=== PATIENT | female | born 1955 | race Caucasian/White ===

== ENCOUNTER 2020-11-04 14:04 | Outpatient (REF) | payer BC, SELFPAY ==
--- NOTE | ~2020-11-04 | MM_ITS ---
EXAMINATION: MM SCREENING DIGITAL BREAST TOMOSYNTHESIS, BILATERAL CLINICAL INFORMATION: Screening. Asymptomatic. The lifetime risk of breast cancer based on the Tyrer-Cuzick Model is 6%. COMPARISON: Mammography: 09/05/2019, 06/16/2018, 03/21/2017 TECHNIQUE: Digital breast tomosynthesis is performed in both the craniocaudal and mediolateral oblique views along with computer-aided detection (CAD). Synthesized 2D images are generated from the tomosynthesis. FINDINGS: The breasts are heterogeneously dense, which may obscure small masses (ACR BI-RADS breast composition Category c). There are no significant masses, abnormal calcifications, or other abnormalities. There is fine fibronodular parenchymal pattern with fibroglandular distribution is similar to prior exams. Breast tissue composition borders on average fibroglandular. There are no significant changes. MM/MM tomosynthesis screening BI IMPRESSION: No mammographic evidence of malignancy. ASSESSMENT: BI-RADS 1: Negative RECOMMENDATION: Routine annual mammography screening. This patient's information was entered into a reminder system with a target due date for their next mammogram.
== END 2020-11-04 14:05 | disposition home or self-care (01) ==
LOC: HO.MAMMO 14:04
PROVIDERS: Visit Provider Family Medicine
DX: Z12.31 Encounter for screening mammogram for malignant neoplasm of breast (principal)
CPT/HCPCS: 77063; 77067

== ENCOUNTER 2022-02-08 13:54 | Outpatient (REF) | payer BC, SELFPAY ==
--- NOTE | ~2022-02-08 | MM_ITS ---
EXAMINATION: MM SCREENING DIGITAL BREAST TOMOSYNTHESIS, BILATERAL CLINICAL INFORMATION: Screening. Asymptomatic. The lifetime risk of breast cancer based on the Tyrer-Cuzick Model is 6%. COMPARISON: Mammography: 11/04/2020, 09/05/2019, 06/16/2018 TECHNIQUE: Digital breast tomosynthesis is performed in both the craniocaudal and mediolateral oblique views along with computer-aided detection (CAD). Synthesized 2D images are generated from the tomosynthesis. FINDINGS: There are scattered areas of fibroglandular density (ACR BI-RADS breast composition Category b). Breast tissue composition borders on heterogeneously dense. Finding fibronodular parenchymal pattern is similar to prior studies and there is no developing density or interval architectural abnormality or significant mass. No abnormal calcifications. No significant changes. MM/MM tomosynthesis screening BI IMPRESSION: No mammographic evidence of malignancy. ASSESSMENT: BI-RADS 1: Negative RECOMMENDATION: Routine annual mammography screening. This patient's information was entered into a reminder system with a target due date for their next mammogram.
== END 2022-02-08 13:55 | disposition home or self-care (01) ==
LOC: HO.MAMMO 13:54
PROVIDERS: Visit Provider Family Medicine
DX: Z12.31 Encounter for screening mammogram for malignant neoplasm of breast (principal)
CPT/HCPCS: 77063; 77067

== ENCOUNTER 2023-05-02 13:55 | Outpatient (REF) | payer BC, SELFPAY | END 2023-05-02 13:56 | disposition home or self-care (01) | LOC: HO.MAMMO 13:55 | PROVIDERS: PCP Family Medicine; Visit Provider Family Medicine | DX: Z12.31 Encounter for screening mammogram for malignant neoplasm of breast (principal) | CPT/HCPCS: 77063; 77067 ==

== ENCOUNTER → 2023-05-02 14:15 | Outpatient (BNV) | payer BC, SELFPAY | PROVIDERS: PCP Family Medicine; Visit Provider Radiology Diagnostic Radiology | DX: Z12.31 Encounter for screening mammogram for malignant neoplasm of breast (principal) | CPT/HCPCS: 77063; 77067 ==

== ENCOUNTER 2024-05-15 11:48 | Outpatient (REF) | payer MEDICARE, SELFPAY ==
--- NOTE | ~2024-05-15 | MM_ITS ---
EXAMINATION: MM SCREENING DIGITAL BREAST TOMOSYNTHESIS, BILATERAL CLINICAL INFORMATION: Screening. Asymptomatic. COMPARISON: Mammography: Comparison is made with available priors TECHNIQUE: Digital breast mammography with tomosynthesis is performed in both the craniocaudal and mediolateral oblique views along with computer-aided detection (CAD). FINDINGS: There are scattered areas of fibroglandular density (ACR BI-RADS breast composition Category b). There are no significant masses, abnormal calcifications, or other abnormalities. MM/MM tomosynthesis screening BI IMPRESSION: No mammographic evidence of malignancy. ASSESSMENT: BI-RADS BI-RADS 1 - Negative RECOMMENDATION: Routine annual mammography screening. 1 year F/U This examination should not preclude the clinical evaluation of a suspicious palpable abnormality. This patient's information was entered into a reminder system with a target due date for their next mammogram. Electronically signed by: Kera Jimenez DO 05/25/2024 09:04 AM EDT
== END 2024-05-15 11:49 | disposition home or self-care (01) ==
LOC: HO.MAMMO 11:48
PROVIDERS: PCP Family Medicine; Visit Provider Family Medicine
DX: Z12.31 Encounter for screening mammogram for malignant neoplasm of breast (principal)
CPT/HCPCS: 77063; 77067

== ENCOUNTER → 2024-05-15 12:00 | Outpatient (BNV) | payer MEDICARE, SELFPAY | PROVIDERS: PCP Family Medicine; Visit Provider Internal Medicine | DX: Z12.31 Encounter for screening mammogram for malignant neoplasm of breast (principal) | CPT/HCPCS: 77063; 77067 ==

== ENCOUNTER 2025-03-28 13:11 | Outpatient (REF) | payer MEDICARE, SELFPAY | END 2025-03-28 13:12 | disposition home or self-care (01) | LOC: HO.LNP 13:11 | PROVIDERS: PCP Family Medicine; Visit Provider Obstetrics & Gynecology | DX: Z01.419 Encounter for gynecological examination (general) (routine) without abnormal findings (principal); N94.9 Unspecified condition associated with female genital organs and menstrual cycle | CPT/HCPCS: 87626; 88175; G0101; Q0091 ==

== ENCOUNTER 2025-03-28 13:11 | Outpatient (AMB) | payer MEDICARE, SELFPAY ==
--- NOTE | 2025-03-28 13:40 | MHC.OFFVIS ---
Vital Signs 03/28/25 13:49 Height 5 ft 1 in Weight 134 lb BMI 25.3 BP 120/72 Intake Visit Reasons: New patient Annual Intake Note: Patient concerns of x4 months vaginal lesion, has hardened. 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 E Commerce Retailer: E Commerce Retailer Present ([place]) Accompanied by: Self / Same As Patient Allergies No Known Allergies Allergy (Verified 03/28/25 13:47) Is last menstrual period known: No Post menopausal: Yes Patient : No HPI Comments Details: Presenting for annual exam. Complaining of a right vulvar lesion that appears 4 months ago , nontender not itchy Last Pap/HPV was negative in 04/02 Last Mammogram was BI-RADS 1 in 06/07 Last Colonoscopy was in 10/09, the recommendation was to repeat in 10 years according to the patient, no records available No previous screening DEXA scan PFSH Medical History Sinusitis Asthma Surgical History History of carpal tunnel surgery Hx of tonsillectomy Social History Household Members Other:: Alone Housing: Condominium Alcohol intake: current Comment: occasional Patient Tobacco Use Status: Former Tobacco user Current occupational status: retired Female Reproductive History Menstrual Age of Menarche: 15 control method: none Age of menopause: 52 Total pregnancies: 0 History of abnormal pap smear: Yes (1989 +HPV ) Date of Mammogram: 05/15/24 (bi rad 1) Review of Systems Const All systems reviewed & are unremarkable except as noted in HPI and below Card Reports as per HPI Resp Reports as per HPI GI Reports as per HPI and Reports no additional complaints Reports as per HPI Physical Exam Vital Signs: Last Vital Signs BP 120/72 03/28/25 13:49 BMI result Body Mass Index 25.3 Const General: cooperative, healthy appearing and comfortable Chest Chest palpation & inspection: normal inspection of the chest and normal palpation of entire chest wall Breast/axilla inspection: normal inspection of the breasts and normal inspection of the axillae Breast/axilla palpation: normal palpation of the breasts, normal palpation of the axillae and no axillary lymphadenopathy Resp Effort & Inspection: normal respiratory effort Auscultation: clear to auscultation bilaterally Percussion: percussion normal Cardio Palpation: normal PMI Rate: regular rate Rhythm: regular rhythm Heart sounds: no murmurs and no rubs Peripheral pulses: Peripheral pulses 2+ throughout GI Inspection: Yes normal to inspection Palpation (GI): Soft to palpation, nontender, no guarding, not rigid and No hepatosplenomegaly present General: Yes bladder normal to palpation External Female Exam: No lesion Speculum Exam - Vagina: normal appearance of the vagina, normal palpation, normal vaginal discharge and not erythematous Speculum Exam - Cervix: normal appearance of the cervix and normal palpation Bimanual exam- vagina & uterus: normal bimanual exam, normal palpation, uterine size normal, bladder normal to palpation, consistency normal and normal palpation Bimanual Exam- Adnexa, other: adnexae abnormal (Left adnexal fullness), no masses and no tenderness Assessment & Plan Assessment & Plan (1) Well woman exam: Code(s): Z01.419 - Encounter for gynecological examination (general) (routine) without abnormal findings Category: Medical Plan: Co testing done since last co testing was in 04/02 more than 5 years, the patient had adequate negative cervical screening in 2015, 2014, 2009 Counseled the patient about the recommended dietary allowance of 1200 mg of Calcium & 800 IU of vitamin D. Instructions given the patient to schedule next screening Mammogram in 06/08. Will order DEXA scan . The patient was instructed to perform monthly self-breast exams and to schedule a 2 week DEXA scan follow-up appointment and an annual exam in a year; All questions answered and the patient verbalized understanding. (2) Adnexal fullness: Comment: Left-sided Code(s): N94.9 - Unspecified condition associated with female genital organs and menstrual cycle Category: Medical Plan: Discussed with the patient the finding on pelvic exam, left adnexal fullness. Pelvic ultrasound ordered. Instructions given the patient to schedule an ultrasound follow-up appointment within 2 weeks. All questions answered, the patient verbalized understanding. Orders: Orders XR DEXA axial skeleton Today Z78.0 - Asymptomatic menopausal state US pelvic and transvaginal Today N94.9 - Unspecified condition associated with female genital organs and menstrual cycle Pap Smear Today Z01.419 - Encounter for gynecological examination (general) (routine) without abnormal findings HPV High risk Today Z01.419 - Encounter for gynecological examination (general) (routine) without abnormal findings Coding Level of Care Code New Pt Prev Care >65yr (99157) Diagnoses Well woman exam Z01.419 Adnexal fullness N94.9
[2025-03-28 13:49] VITALS: BP 120/72; BMI 25.3
--- OUTSIDE RECORDS SUMMARY | 2025-03-28 14:04 | XMS_ITS | Clinical Summary ---
Author Organization [facility] Address [address] [place] [phone] Phone Care Team Providers Care Park Activities Coordinator Name Role Phone Royal Luciano MD Primary Care Provider + Allergies Active Allergy Reactions Criticality Noted Date Comments Pollen Extracts 07/24/2024 Medications fluticasone-salm eterol (ADVAIR DISKUS) 250-50 mcg/dose DISKUS Inhale 1 puff into the lungs 2 (two) times a day. 7 Active albuterol (PROAIR HFA) 90 mcg/actuation inhaler Inhale 2 puffs into the lungs every 4 (four) hours as needed. 7 Active ALBUTEROL SULFATE (PROAIR HFA INHL) 2 puffs as needed Inhalation as needed Active fluticasone-salm eterol (ADVAIR DISKUS) 250-50 mcg/dose DISKUS Inhalation daily Active Medication-Free Text Acyclovir Active ID-estradiol or placebo ([id number]) 0.1 mg/24 hr transdermal patchIndications :Research exam Apply one patch topically twice a week (every 3 days) 28 patch 5 Active ID-progesterone or placebo ([id number]) vaginal insertIndication s:Research exam Place 1 each (100 mg total) vaginally daily. 104 each 5 Active Encounters Date Type Department Care Team Description 01/30/2025 Orders Only [facility] [place] [address] [place] [address], [address] [place] [address] Sharon Solorio CNP Research exam (Primary Dx) from Last 3 Months Family History Medical History Relation Comments Cancer Maternal Grandmother Colon cancer Maternal Grandmother Thyroid disease Mother Cancer Paternal Aunt Uterine cancer Paternal Aunt Cancer Paternal Grandmother Relation Status Comments Maternal Grandmother Mother Paternal Aunt Paternal Grandmother Social History Tobacco Use Types Packs/Day Years Used Date Smoking Tobacco: Never Assessed Education Answer Date Recorded Are you interested in more education? Not on todd e 05/01/2024 Are you concerned about learning? Not on file 05/01/2024 No 05/01/2024 No 05/01/2024 Digital Access Answer Date Recorded No 05/01/2024 No 05/01/2024 Reliable internet access at home? Not on file 05/01/2024 Device with a working camera? Not on file Comments Unknown Sex and Gender Information Value Date Recorded Sex Assigned at Female 06/25/2024 10:17 AM EST Legal Sex Female 9:51 PM EDT Gender Identity Female 06/25/2024 10:17 AM EST Sexual Orientation Lesbian or Bennett 06/25/2024 10 :17 AM EST Last Filed Vital Signs Vital Sign Reading Time Taken Comments Blood Pressure 130/70 09/29/2017 10:08 AM EST Pulse 94 04/07/2017 11:20 AM EDT Temperature 36.8 C (98.2 F) 04/07/2017 11:20 AM EDT Respiratory Rate - - Oxygen Saturation - - Inhaled Oxygen Concentration - - Weight 58.6 kg (129 lb 3 oz) 07/24/2024 11:00 AM EST metabolic Height 152.2 cm (4' 11.92 ) 07/24/2024 11:00 AM EST Body Mass Index 25.3 07/24/2024 11:00 AM EST Plan of Treatment Health Maintenance Due Date Last Done Comments Adult Td,Tdap Booster 1957 LIPID PANEL 1957 DEPRESSION SCREENING 1969 SMOKING Hx and SMOKELESS TOBACCO SCREENING 1970 MAMMOGRAM 1997 COLOGUARD 2002 COLONOSCOPY 2002 COLORECTAL CANCER SCREENING 2002 FIT TEST 2002 FOBT 2002 SIGMOIDOSCOPY 2002 VIRTUAL COLONOSCOPY 2002 PNEUMOCOCCAL VACCINES (50+ years) (1 of 1 - PCV) 12/30/2007 ZOSTER VACCINES (1 of 2) 12/30/2007 SCREENING FOR DIABETES 01/18/2021 01/18/2018 OSTEOPOROSIS SCREENING INITI AL (ONE-TIME) 2022 COVID-19 VACCINE (3 - 2023-2 5 season) 2024 12/06/2020, 11/14/2020 RSV VACCINE (1 - 1-dose 75+ series) 2032 HEPATITIS C SCREENING Completed 06/28/2024 HEPATITIS A VACCINES Aged Out No long er eligible based on patient's age to complete this topic HIB VACCINES Aged Out No longer eligi ble based on patient's age to complete this topic MENINGOCOCCAL VACCINES (ACWY) Aged Out No longer eligible based on patient's age to complete this topic MENINGOCOCCAL VACCINES (B) Aged Out N o longer eligible based on patient's age to complete this topic Medical Devices Not on file Procedures Procedure Name Priority Date/Time Associated Diagnosis Comments HEPATITIS C ANTIBODY, QUALITATIVE Routine 06/28/2024 2:32 PM EST Research exam from Last 3 Months or Most Recently Relevant to Health Maintenance Results * Hepatitis C antibody, qualitative (06/28/2024 2:32 PM EST) HCV ANTIBODY Negative Negative [facility] Comment:Antibodies to HCV no t detected. Does not exclude the possibility of exposure to HCV. Blood 06/28/2024 2:32 PM EST 06/28/2024 5:29 PM EST us Sharon Solorio CONCRETE FINISHER APPRENTICE LAB BLOOD ORDERABLES Final Result [facility] [address] [place] [address] from Last 3 Months or Most Recently Relevant to Health Maintenance Insurance [employer] MEDICARE PREFERRED SUPPLEMENT MEDICARE PART A & B [facility] MEDICARE PREFERRED SUPPLEMENT MEDICARE PART A & B [facility] MEDICARE PREFERRED SUPPLEMENT MEDICARE PART A & B [facility] MEDICARE PREFERRED SUPPLEMENT MEDICARE PART A & B [employer] MEDICARE PREFERRED SUPPLEMENT MEDICARE PART A & B [facility] MEDICARE PREFERRED SUPPLEMENT MEDICARE PART A & B Care Teams Park Activities Coordinator Relationship Specialty Start Date End Date Royal Luciano MD [address] [place] [phone] PCP - General Family Medicine 06/25/24 Additional Source Comments The information contained in this document represents components of the legal health record. It is not the complete legal health record.[facility]
--- OUTSIDE RECORDS SUMMARY | 2025-03-28 14:04 | XMS_ITS ---
Author Name [facility] Organization Unknown Encounters Encounter Type Encounter Reason Primary Diagnosis Location Date Emergency medical services General Pain - Injury Pain (General) [facility] 12/21/2021
== END 2025-03-28 14:09 | disposition home or self-care (01) ==
LOC: HO.HWS 13:12
PROVIDERS: PCP Family Medicine; Visit Provider Obstetrics & Gynecology
DX: Z01.419 Encounter for gynecological examination (general) (routine) without abnormal findings (principal); N94.9 Unspecified condition associated with female genital organs and menstrual cycle
CPT/HCPCS: G0101; Q0091

== ENCOUNTER 2025-05-16 13:39 | Outpatient (REF) | payer MEDICARE, SELFPAY ==
--- NOTE | ~2025-05-16 | US_ITS ---
EXAMINATION: US PELVIS CLINICAL INFORMATION: Adnexal fullness. Postmenopausal. COMPARISON: None available. TECHNIQUE: Ultrasound of the pelvis is performed using both transabdominal and transvaginal transducers along with Doppler. Transvaginal imaging is performed due to inadequate visualization transabdominally. FINDINGS: Uterus: The uterus is anteverted, anteflexed and measures 6.5 x 2.7 x 3.4 cm. The double wall endometrial thickness is 3.0 mm. The uterus is smooth in contour and has normal myometrial echogenicity. There is a small echogenic fibroid along the anterior uterus measuring 1.2 x 0.9 x 0.8 cm. No additional lesions seen. Adnexa: Both ovaries are visualized. There is normal color flow to the adnexa. There is no ovarian torsion. There is no pelvic ascites or fluid collection. Right ovary measures 1.6 x 1 0.0, 1.7 cm. Volume measures 1.4 mL Left ovary measures 1.7 x 1.2 x 1.1 cm. Volume measures 1.2 mL . There is no free fluid in cul-de-sac. US/US pelvic and transvaginal IMPRESSION: Small uterine fibroid. Otherwise uterus is unremarkable. Unremarkable ovaries. No free fluid in cul-de-sac. Electronically signed by: Misbah Burks MD 05/16/2025 02:50 PM EDT
--- OUTSIDE RECORDS SUMMARY | 2025-05-16 15:10 | XMS_ITS | Encounter Summary ---
Author Organization [facility] Address [address] [place] [phone] Phone Care Team Providers Care Pc Installation Engineer Name Role Phone Royal Luciano MD Primary Care Provider + Encounter Details Date Type Department Care Team (Late st Contact Info) Description 07/10/2024 Procedure Pass [facility] for [facility] - MRI [address] [facility]th [place] [address] Social History Tobacco Use Types Packs/Day Years [...] or Bennett 06/25/2024 10 :17 AM EST documented as of this encounter Plan of Treatment Not on file documented as of this encounter Visit Diagnoses Not on filedocumented in this encounter Care Teams Pc Installation Engineer Relationship Specialty Start Date End Date Royal Luciano MD [address] [place] [id number] PCP - General Family Medicine 06/25/24 documented as of this encounter Additional Source Comments The information contained in this document represents components of the legal health record. It is not the complete legal health record.[facility]
--- OUTSIDE RECORDS SUMMARY | 2025-05-16 15:10 | XMS_ITS | Encounter Summary ---
Author Organization [facility] Address [address] [address] Phone Care Team Providers Care Insurance Marketing Specialist Name Role Phone Luis Du MD Primary Care Provider Royal Germain MD Primary Care Provider + Encounter Details Date Type Department Care Team (Latest Contact Info) Description 01/18/2018 Transcribe Orders [facility] [address] [place] [address] Luis Du MD Colitis (Primary Dx); Rectal bleeding Social History Tobacco Use Types Packs/Day Years Used Date Smoking Tobacco: Never Assessed Comments Unknown Sex and Gender Information Value Date Recorded Sex Assigned at Female 06/25/2024 10:17 AM EST Legal Sex Female 9:51 PM EDT Gender Identity Female 06/25/2024 10:17 AM EST Sexual Orientation Lesbian or Bennett 06/25/2024 10 :17 AM EST documented as of this encounter Plan of Treatment Not on file documented as of this encounter Results * Sedimentation rate (ESR) (01/18/2018 10:44 AM EDT) ESR 7 0 - 30 mm/h [facility] Blood 01/18/2018 10:4 4 AM EDT 01/18/2018 10:46 AM EDT us Luis Du MD LAB BLOOD ORDERABLES Final Resu lt [address] [address] * (ABNORMAL) C-Reactive Protein (01/18/2018 10:44 AM EDT) Pathologist [facility] C REACTIVE PROTEIN 10.9(H) 0.0 - 4.0 mg/L [facility] Comment:New Reference Range and Measuring Units effective 12/28/17. Blood 01/18/2018 10:4 4 AM EDT 01/18/2018 10:46 AM EDT us Luis Du MD LAB BLOOD ORDERABLES Final Resu lt [address] [address] * (ABNORMAL) CBC and differential (01/18/2018 10:44 AM EDT) Pathologist [facility] WBC 6.55 3.40 - 11.20 K/uL [facility] RBC 4.45 3.80 - 4.80 M/uL [facility] HGB 14.1 12.0 - 15.0 g/dL [facility] HCT 40.9 36.0 - 46.0 % [facility] PLT 324 130 - 400 K/uL [facility] MCV 91.9 79.0 - 98.0 [facility] MCH 31.7 27.0 - 34.8 pg [facility] MCHC 34.5 31.5 - 36.0 g/dL [facility] RDW 12.8 10.8 - 14.6 % [facility] MPV 10.1 9.4 - 12.4 [facility] NRBC 0.00 /100 WBCs [facility] ABSOLUTE NRBC 0.00 K/uL [facility] DIFF METHOD Auto [facility] NEUTS 67.7 45.30 - 77.70 % [facility] LYMPHS 20.6 12.30 - 39.70 % [facility] MONOS 9.5 4.10 - 12.80 % [facility] EOS 1.4 0 - 7.2 % [facility] BASOS 0.3 0 - 2.80 % [facility] Granulocytes, immature (%) 0.5 0.0 - 0.9 % [facility] ABSOLUTE NEUTS 4.44 1.40 - 7.70 K/uL [facility] ABSOLUTE LYMPHS 1.35 0.60 - 3.20 K/uL [facility] ABSOLUTE MONOS 0.62(H) 0.11 - 0.59 K/uL [facility] ABSOLUTE EOS 0.09 0.01 - 0.50 K/uL [facility] ABSOLUTE BASOS 0.02 0.00 - 0.08 K/uL [facility] Granulocytes, immature 0.03 0.00 - 0.05 K/uL [facility] Blood 01/18/2018 10:4 4 AM EDT 01/18/2018 10:46 AM EDT us Luis Du MD LAB BLOOD ORDERABLES Final Resu lt Performing Organization Address City/State/[place] Co de Phone Number [address] [phone] * Comprehensive metabolic panel (01/18/2018 10:44 AM EDT) SODIUM 142 133 - 146 mmol/L [facility] POTASSIUM 3.7 3.3 - 5.1 mmol/L [facility] CHLORIDE 101 96 - 108 mmol/L [facility] CO2 28 21 - 35 mmol/L [facility] BUN 9 6 - 19 mg/dL [facility] CREATININE 0.70 0.5 - 1.5 mg/dL [facility] GLUCOSE 94 70 - 99 mg/dL [facility] ALBUMIN 3.9 3.9 - 4.8 g/dL [facility] TOTAL PROTEIN 7.0 6.5 - 8.0 g/dL [facility] CALCIUM 9.4 8.4 - 10.3 mg/dL [facility] ALKALINE PHOSPHATASE 56 39 - 117 U/L [facility] TOTAL BILIRUBIN 0.9 0.0 - 1.2 mg/dL [facility] AST 19 0 - 37 U/L [facility] ALT 15 0 - 40 U/L [facility] GLOBULIN 3.1 1 - 4.8 g/dL [facility] EGFR 94 >59 mL/min/1.7 3m2 [facility] Comment:If patient is black, multiply result by 1.159. The eGFR calculation has changed from the MDRD equation to the CKD-EPI equation as of October 18, 2017. ANION GAP 17 10 - 20 mmol/L [facility] Blood 01/18/2018 10:4 4 AM EDT 01/18/2018 10:46 AM EDT us Luis Du MD LAB BLOOD ORDERABLES Final Resu lt [facility] [address] [place] [address] documented in this encounter Visit Diagnoses Diagnosis Colitis- Primary Other and unspecified noninfectious gastroenteritis and colitis Rectal bleeding Hemorrhage of rectum and anus documented in this encounter Care Teams Insurance Marketing Specialist Relationship Specialty Start Date End Date Luis Du MD PCP - General Internal Medicine 02/08/18 06/24/24 Royal Luciano MD [address] [place] [phone] PCP - General Family Medicine 06/25/24 documented as of this encounter Additional Source Comments The information contained in this document represents components of the legal health record. It is not the complete legal health record.[facility]
--- OUTSIDE RECORDS SUMMARY | 2025-05-16 15:10 | XMS_ITS | Encounter Summary ---
Author Organization [facility] Address [address] [place] [address] Phone Care Team Providers Care Micrographics Services Supervisor Name Role Phone Ajay Moss DO Primary Care Provider Luis Du MD Primary Care Provider Royal Germain MD Primary Care Provider + Reason for Referral * MRI/CAT Scan - Closed Specialty Diagnoses / Procedures Referred By Alexx baker Referred To Contact Radiology Diagnoses Atypical chest pain Procedures NC Myocardial Perfusion Exercise Multiple NC Myocardial Perfusion Stress Single NC PET Cardiac Perfusion Multiple NC Myocardial Perfusion Stress Single Luis Du MD Referral ID Status Reason Start Date Expiration Date Visits Re quested Visits Authorized [id number] Closed 09/19/2017 09/19/2018 1 1 Encounter Details Date Type Department Care Team (Late st Contact Info) Description 09/19/2017 Ancillary Orders Virtual Department [address] [place] [address] Luis Du MD Atypical chest pain Social History Tobacco Use Types Packs/Day Years [...] documented as of this encounter Results * NC Myocardial Perfusion Exercise Multiple (09/29/2017 10:57 AM EST) Anatomical Region Laterality Modality Heart, Vascular Nuclear Medicine 09/29/2017 2:00 PM EST Impressions 09/29/2017 2:08 PM EST No evidence of ischemia or infarction. Ejection fraction = 67%.. POS [id number] Narrative 09/29/2017 2:08 PM EST HISTORY: Atypical chest pain, history of tobacco use. COMPARISON: None DOSE: Rest dose 9 mCi Tc-99m sestamibi, Stress dose 30.1 mCi Tc-99m sestamibi FINDINGS: Patient exercised on a Yoel protocol for 8 minutes and 2 seconds obtaining a maximal heart rate of 166 bpm which is 103% of the maximal predicted heart rate. Test terminated due to fatigue. No exertional chest pain or other symptoms reported during the exam. No EKG changes of ischemia reported. Minimal extracardiac activity on the rest images. No reversible or fixed perfusion defects. Ejection fraction appears preserved, calculated at 67%. Procedure Note Michael Curiel MD - 09/29/2017 HISTORY: Atypical chest pain, history of tobacco use. COMPARISON: None DOSE: Rest dose 9 mCi Tc-99m sestamibi, Stress dose 30.1 mCi Tc-99msestamibi FINDINGS: Patient exercised on a Yoel protocol for 8 minutes and 2 secondsobtaining a maximal heart rate of 166 bpm which is 103% of the maximalpredicted heart rate. Test terminated due to fatigue. No exertionalchest pain or other symptoms reported during the exam. No EKG changes ofischemia reported. Minimal extracardiac activity on the rest images. No reversible or fixedperfusion defects. Ejection fraction appears preserved, calculated at67%. IMPRESSION: No evidence of ischemia or infarction. Ejection fraction = 67%.. POS -[id number] Luis Du MD CV NM CARDIAC Final Result documented in this encounter Visit Diagnoses Diagnosis Atypical chest pain Other chest pain Atypical chest pain Other chest pain documented in this encounter Care Teams Micrographics Services Supervisor Relationship Specialty Start Date End Date Sahd, Ajay F, DO [address] [place] [address], [address] [place] [address] [email or web address] PCP - General 08/18/17 09/28/17 Luis Du MD PCP - General Internal Medicine 02/08/18 06/24/24 Royal Luciano MD [address] [place] [address] PCP - General Family Medicine 06/25/24 documented as of this encounter Additional Source Comments The information contained in this document represents components of the legal health record. It is not the complete legal health record.[facility]
--- OUTSIDE RECORDS SUMMARY | 2025-05-16 15:10 | XMS_ITS | Clinical Summary ---
Author Organization [facility] Address [address] [place] [address] Phone Care Team Providers Care Psychotherapist Social Worker Name Role Phone Royal Luciano MD Primary [...] Medication-Free Text Acyclovir Active ID-estradiol or placebo ([id number]) 0.1 mg/24 hr transdermal patchIndications :Research exam Apply one patch topically twice a week (every 3 days) 28 patch 5 Active ID-progesterone or placebo ([id number]) vaginal insertIndication s:Research exam Place 1 each (100 mg total) vaginally daily. 104 each 5 Active Family History Medical History Relation Comments Cancer [...] 01/18/2018 OSTEOPOROSIS SCREENING INITI AL (ONE-TIME) 2022 INFLUENZA VACCINE (#1) 2025 6, 05/21/2015 COVID-19 VACCINE (3 - 2024-2 6 season) 2025 12/06/2020, 11/14/2020 RSV VACCINE (1 - 1-dose [...] 2:32 PM EST) HCV ANTIBODY Negative Negative [facility] Comment:Antibodies to HCV no t detected. Does not exclude the possibility of exposure to HCV. Blood 06/28/2024 2:32 PM EST 06/28/2024 5:29 PM EST Sahron Solorio DIRECTOR OF PRIMARY CARE LAB BLOOD ORDERABLES Final Result [facility] [address] [address] from Last 3 Months or Most Recently Relevant to Health Maintenance Insurance [employer] PREFERRED SUPPLEMENT MEDICARE PART A & B [employer] PREFERRED SUPPLEMENT MEDICARE PART A & B [facility] MEDICARE PREFERRED SUPPLEMENT MEDICARE PART A & B [facility] MEDICARE PREFERRED SUPPLEMENT MEDICARE PART A & [place] [address] [address] MEDICARE PREFERRED SUPPLEMENT MEDICARE PART A & B [facility] MEDICARE PREFERRED SUPPLEMENT MEDICARE PART A & B Care Teams Psychotherapist Social Worker Relationship Specialty Start Date End Date Royal Luciano MD [address] [place] [address] PCP - General Family Medicine 06/25/24 Additional Source Comments The information contained in this document represents components of the legal health record. It is not the complete legal health record.[facility]
--- OUTSIDE RECORDS SUMMARY | 2025-05-16 15:10 | XMS_ITS | Patient Health Record ---
Author Organization [facility] Address [address] [place] [address] Care Team Providers Care Personal Lines Appraiser Name Role Phone DuLuis Primary Care Provider Garrett Melvin Unavailable [phone] Reason For Referral No Information Medications Medication SIG (Take, Route, Frequency, Duration) Notes Start Date End Date Status Advair Diskus 100-50 MCG/DOSE 1 puff Inhalation every 12 hrs Active ProAir HFA 108 (90 Base) MCG/ACT 2 puffs as needed Inhalation every 4 hrs Active Problems Problem Type SNOMED Code ICD Code Onset Dates Problem Status W/U Status Risk Notes Problem Ganglion cyst (19600952) Ganglion Cyst (727.43) Active confirmed Problem Hammer toe (966493768) Hammer toe (735.4) Active confirmed Plan Of Treatment Pending Test Test Name Order Date X ray : Foot, right 3V 04/11/2012- Ganglion Cyst Injection/Aspiratio n 04/11/2012 Insurance Providers Payer Name Payer Address Payer Phone Subscriber Number Group Number Insured Name Patient Relationship to Insured Coverage Start Date Coverage End Date [facility] All Others [address] [place] [address] [id number] Elizabeth Aguilera Self - patient is the insured Medical (General) History Medical History History ICD Code asthma measles mumps chicken pox Surgical History Surgery Date(Month/Year) tonsillectomy 1980 hemorrhoidectomy 1988
--- OUTSIDE RECORDS SUMMARY | 2025-05-16 15:10 | XMS_ITS | Encounter Summary ---
Author Organization [facility] Address [address] [place] [address] Phone Care Team Providers Care Crane Oiler Name Role Phone Ajay Moss DO Primary Care Provider [phone] Luis Du MD Primary Care Provider Royal Germain MD Primary Care Provider + Encounter Details Date Type Department Care Team (Late st Contact Info) Description 09/28/2017 Ancillary Orders Non-Invasive Cardiology [address] [place] [address] Luis Du MD Atypical chest pain Social [...] as of this encounter Results * NC Stress Result for Nuclear Stress Test (NWH) (09/29/2017 10:08 AM EST) Max BP Systolic 140 mmHg [facility] Max BP Diastolic 60 mmHg [facility] Max HR 166 BPM [facility] Resting HR 103 BPM [facility] Resting BP Systolic 100 mmHg [facility] Resting BP Diastolic 60 mmHg [facility] Peak METS 10.1 METS [facility] Peak HR 166 BPM [facility] Anatomical Region Laterality Modality Heart Other 09/29/2017 9:26 AM EST 09/29/2017 10:08 AM EST Narrative 09/29/2017 11:16 AM EST Stress Test Result The heart rate changed from 103 bpm at rest to 166 bpm at peak stress. The blood pressure changed from 100/60 mmHg at rest. The patient's functional capacity is 10.1 METS. Exercise Stress Test Report: Reason for termination: Fatigue Summary: Resting ECG: SR HR 100 incomplete IVCD Functional capacity: Good Heart rate response to exercise:Approriate Blood pressure response to exercise:Normal resting-appropriate Chest pain:None Arrhythmias:None ST-T changes:None Overall impression: Normal ETT Conclusion: Elizabeth Aguilera exercised for 8:02 Minutes on a standard Yoel protocol achieving 103% MPHR (166 BPM) and 10.10 METS. Test terminated due to fatigue Summary: 1. EKG: No EKG evidence of ischemia per criteria 2. Symptoms: No exertional chest pain or symptoms concerning for angina 3. Exercise physiology: Normal heart rate and BP response to exercise. Max HR 166 With normal HR recovery. Max BP 140/60 From baseline BP of 100/60 . 02 sat 96- 97% and stable throughout the procedure. Good functional capacity for age noted 4. Arrhythmia:None Conclusion: Normal ETT. No ischemic EKG changes. Vital signs at baseline at time of discharge from the lab. Nuclear images to follow. EKG reviewed with Dr. Myra Ibanez CONSULTANT us Luis Du MD CV NM CARDIAC Final Result documented in this encounter Visit Diagnoses Diagnosis Atypical chest pain Other chest pain documented in this encounter Care Teams Crane Oiler Relationship Specialty Start Date End Date Ajay Moss DO [address] [place] [address], [address] [place] [address] PCP - General 08/18/17 09/28/17 Luis Du MD PCP - General Internal Medicine 02/08/18 06/24/24 Royal Luciano MD [address] [place] [address] PCP - General Family Medicine 06/25/24 documented as of this encounter Additional Source Comments The information contained in this document represents components of the legal health record. It is not the complete legal health record.[facility]
== END 2025-05-16 13:40 | disposition home or self-care (01) ==
LOC: HO.US 13:39
PROVIDERS: PCP Family Medicine; Visit Provider Obstetrics & Gynecology
DX: N94.9 Unspecified condition associated with female genital organs and menstrual cycle (principal)
CPT/HCPCS: 76830; 76856

== ENCOUNTER → 2025-05-16 13:41 | Outpatient (BNV) | payer MEDICARE, SELFPAY | PROVIDERS: PCP Family Medicine; Visit Provider Radiology Diagnostic Radiology | DX: D25.9 Leiomyoma of uterus, unspecified (principal); N94.9 Unspecified condition associated with female genital organs and menstrual cycle | CPT/HCPCS: 76830; 76856 ==

== ENCOUNTER 2025-06-25 14:13 | Outpatient (REF) | payer MEDICARE, SELFPAY ==
--- NOTE | ~2025-06-25 | MM_ITS ---
EXAMINATION: MM SCREENING DIGITAL BREAST TOMOSYNTHESIS, BILATERAL CLINICAL INFORMATION: Screening. Asymptomatic. COMPARISON: Mammography: Comparison is made with available priors TECHNIQUE: Digital breast mammography with tomosynthesis is performed in both the craniocaudal and mediolateral oblique views along with computer-aided detection (CAD). FINDINGS: There are scattered areas of fibroglandular density. There are no significant masses, abnormal calcifications, or other abnormalities. MM/MM tomosynthesis screening BI IMPRESSION: No mammographic evidence of malignancy. ASSESSMENT: BI-RADS Category 1: Negative RECOMMENDATION: Routine annual mammography screening. 1 year F/U This examination should not preclude the clinical evaluation of a suspicious palpable abnormality. This patient's information was entered into a reminder system with a target due date for their next mammogram. Electronically signed by: Kera Jimenez DO 06/26/2025 08:27 AM [email or web address]
--- OUTSIDE RECORDS SUMMARY | 2025-06-25 15:53 | XMS_ITS | Clinical Summary ---
Author Organization [facility] Address [address] [place] [address] Phone Care Team Providers Care Residential Aide Name Role Phone Royal Luciano MD Primary Care Provider + Allergies Active Allergy Reactions Criticality Noted Date Comments Pollen Extracts 07/24/2024 Medications fluticasone-puja meterol (ADVAIR DISKUS) 250-50 mcg/dose DISKUS Inhale 1 puff into the lungs 2 (two) times a day. 7 Active albuterol (PROAIR HFA) 90 mcg/actuation inhaler Inhale 2 puffs into the lungs every 4 (four) hours as needed. 7 Active ALBUTEROL SULFATE (PROAIR HFA INHL) 2 puffs as needed Inhalation as needed Active fluticasone-puja meterol (ADVAIR DISKUS) 250-50 mcg/dose DISKUS Inhalation daily Active Medication-Free Text Acyclovir Active ID-estradiol or placebo ([id number]) 0.1 mg/24 hr transdermal patchIndication s:Research exam Apply one patch topically twice a week (every 3 days) 12 patch 5 Active ID-progesterone or placebo () vaginal insertIndicatio ns:Research exam Place 1 each (100 mg total) vaginally daily. 45 each 5 Active ID-estradiol or placebo ([id number]) 0.1 mg/24 hr transdermal patchIndication s:Research exam Apply one patch topically twice a week (every 3 days) 28 patch 5 06/12/20 25 Discontin ued(Dupli isabel order) ID-progesterone or placebo ([id number]) vaginal insertIndicatio ns:Research exam Place 1 each (100 mg total) vaginally daily. 104 each 5 06/12/20 25 Discontin ued(Dupli isabel order) Encounters Date Type Department Care Team Description 06/12/[address] [facility] [address] [facility], [address] [place] [address] Sharon Solorio CNP Research exam (Primary Dx) 06/03/[address] [facility] [address] [place] [address], [address] [place] [address] Sharon Solorio CNP Research exam (Primary Dx) [...] 07/24/2024 11:00 AM EST Plan of Treatment Upcoming Encounters Date Type Department Care Team (Late st Contact Info) Description 06/03/2025 Procedure Pass [facility] - MRI [address] [place] [address], [address] [place] [address] 07/17/2025 2:40 PM EST Hospital Encounter [facility] - [address], [address] [place] [address] Sharon Solorio, BILINGUAL INTERPRETER [address] [place] [address] [email or web address] Health Maintenance Due Date Last Done Comments Adult Td,Tdap Booster 1957 LIPID PANEL 1957 DEPRESSION SCREENING 1969 SMOKING Hx and SMOKELESS TOBACCO SCREENING 1970 MAMMOGRAM 1997 COLOGUARD 2002 FIT TEST 2002 FOBT 2002 SIGMOIDOSCOPY 2002 VIRTUAL COLONOSCOPY 2002 PNEUMOCOCCAL VACCINES (50+ years) (1 of 1 - PCV) 12/30/2007 ZOSTER VACCINES (1 of 2) 12/30/2007 SCREENING FOR DIABETES 01/18/2021 01/18/2018 OSTEOPOROSIS SCREENING INITI AL (ONE-TIME) 2022 INFLUENZA VACCINE (#1) 2025 6, 05/21/2015 COVID-19 VACCINE (3 - 2024-2 6 season) 2025 12/06/2020, 11/14/2020 COLONOSCOPY 02/09/2028 02/08/2018 COLORECTAL CANCER SCREENING 02/09/2028 RSV VACCINE (1 - 1-dose 75+ series) 2032 HEPATITIS C SCREENING Completed 06/28/2024 , 06/28/2024 HEPATITIS A VACCINES Aged Out No long er eligible based on patient's age to complete this topic HIB VACCINES Aged Out No longer eligi ble based on patient's age to complete this topic IPV VACCINES Aged Out No longer eligi ble [...] Routine 06/28/2024 2:32 PM EST Research exam HM COLONOSCOPY FOR RESULT ENTRY ONLY Routine 02/08/2018 from Last 3 Months or Most Recently Relevant to Health Maintenance Results * Hepatitis C antibody, qualitative (06/28/2024 2:32 PM EST) HCV ANTIBODY Negative Negative [facility] Comment:Antibodies to HCV no t detected. Does not exclude the possibility of exposure to HCV. Blood 06/28/2024 2:32 PM EST 06/28/2024 5:29 PM EST Sharon Solorio BILINGUAL INTERPRETER LAB BLOOD BKR ORDERAB LES Final Result [facility] [address] [place] [address] * COLONOSCOPY FOR RESULT ENTRY ONLY (02/08/2018) Colonoscopy External us Historical Provider HEALTH MAINTENANCE Final Result from Last 3 Months or Most Recently Relevant to Health Maintenance Insurance [employer] PREFERRED SUPPLEMENT MEDICARE PART A & B [employer] PREFERRED SUPPLEMENT MEDICARE PART A & B Member Subscriber Plan / Payer (Ef fective 2023-Present) Name:Elizabeth Aguilera Member ID:[id number] Relation to Subscriber:Self Name:Elizabeth Aguilera Subscriber ID:[id number] Payer ID:[id number] Group ID:Not on file Type:Medicare Address: [place] [id number] [facility] MEDICARE PREFERRED SUPPLEMENT MEDICARE PART A & B [facility] MEDICARE PREFERRED SUPPLEMENT MEDICARE PART A & [place] [address] [address] MEDICARE PREFERRED SUPPLEMENT MEDICARE PART A & B [facility] MEDICARE PREFERRED SUPPLEMENT MEDICARE PART A & B Care Teams Residential Aide Relationship Specialty Start Date End Date Royal Luciano MD [address] [place] [address] PCP - General Family Medicine 06/25/24 Additional Source Comments The information contained in this document represents components of the legal health record. It is not the complete legal health record.[facility]
--- OUTSIDE RECORDS SUMMARY | 2025-06-25 15:54 | XMS_ITS | Encounter Summary ---
Author Organization [facility] Address [address] [place] [address] Phone Care Team Providers Care Crnp Name Role Phone Royal Luciano MD Primary Care Provider + Encounter Details Date Type Department Care Team (Late st Contact Info) Description 07/10/2024 Procedure Pass [facility] - MRI [address] [facility]th [place] [address] Social History Tobacco Use Types Packs/Day Years [...] as of this encounter Plan of Treatment Upcoming Encounters Date Type Department Care Team (Late st Contact Info) Description 06/03/2025 Procedure Pass [facility] - MRI [address] [facility] [place] [address] 07/17/2025 2:40 PM EST Hospital Encounter [facility] - MRI [address] [facility] [place] [address] Sharon Solorio, SENIOR MEDICAL TECHNOLOGIST [address] [place] [address] [email or web address] documented as of this encounter Visit Diagnoses Not on filedocumented in this encounter Care Teams Crnp Relationship Specialty Start Date End Date Royal Luciano MD [address] [place] [address] PCP - General Family Medicine 06/25/24 documented as of this encounter Additional Source Comments The information contained in this document represents components of the legal health record. It is not the complete legal health record.[facility]
--- OUTSIDE RECORDS SUMMARY | 2025-06-25 15:54 | XMS_ITS | Encounter Summary ---
Author Organization [facility] Address [address] [place] [address] Phone Care Team Providers Care Class C Truck Driver Name Role Phone Ajay Moss DO Primary Care Provider [phone] Luis Du MD Primary Care Provider Royal [...] Expiration Date Visits Re quested Visits Authorized [id number] Closed 09/19/2017 09/19/2018 1 1 Encounter Details Date Type Department Care Team (Late st Contact Info) Description 09/19/2017 Ancillary Orders Virtual Department [address] [place] [address] Luis Du MD Atypical chest pain Social [...] st Contact Info) Description 06/03/2025 Procedure Pass [facility] - MRI [address] [facility] [place] [address] 07/17/2025 2:40 PM EST Hospital Encounter [facility] - MRI [address] [facility] [place] [address] Sharon Solorio, DROP CLIPPER [address] [place] [address] [email or web address] documented as of this encounter Results * [...] infarction. Ejection fraction = 67%.. POS -[id number] us Luis Du MD CV NM CARDIAC Final Result documented in this encounter Visit Diagnoses Diagnosis Atypical chest pain Other chest pain Atypical chest pain Other chest pain documented in this encounter Care Teams Class C Truck Driver Relationship Specialty Start Date End Date Ajay Moss DO [address] [place] [address], [facility] [address] [place] [address] [email or web address] PCP - General 08/18/17 09/28/17 Luis Du MD PCP - General Internal Medicine 02/08/18 06/24/24 Royla Luciano MD [address] [place] [address] PCP - General Family Medicine 06/25/24 documented as of this encounter Additional Source Comments The information contained in this document represents components of the legal health record. It is not the complete legal health record.[facility]
--- OUTSIDE RECORDS SUMMARY | 2025-06-25 15:54 | XMS_ITS | Encounter Summary ---
Author Organization [facility] Address [address] [place] [address] Phone Care Team Providers Care Automatic Data Processing Planner Name Role Phone Luis Du MD Primary Care Provider Royal Germain MD Primary Care Provider + Encounter Details Date Type Department Care Team (Latest Contact Info) Description 01/18/2018 Transcribe Orders [facility] Phleb Main [address] [place] [address] Luis Du MD Colitis (Primary Dx); Rectal [...] st Contact Info) Description 06/03/2025 Procedure Pass [facility] - MRI [address] [place] [address], [address] [place] [address] 07/17/2025 2:40 PM EST Hospital Encounter [facility] - MRI [address] [facility], [address] [place] [address] Sharon Solorio, UNDERWRITING INTERN [address] [place] [address] [email or web address] documented as of this encounter Results * Sedimentation rate (ESR) (01/18/2018 10:44 AM EDT) ESR 7 0 - 30 mm/h [facility] Blood 01/18/2018 10:4 4 AM EDT 01/18/2018 10:46 AM EDT Luis Du MD LAB BLOOD BKR ORDERABLES Final Result Performing Organization Address [facility]/ZIP Co de Phone Number [address] [address] * (ABNORMAL) C-Reactive Protein (01/18/2018 10:44 AM EDT) [facility] C REACTIVE PROTEIN 10.9(H) 0.0 - 4.0 mg/L [facility] Comment:New Reference Range and Measuring Units effective 12/28/17. Blood 01/18/2018 10:4 4 AM EDT 01/18/2018 10:46 AM EDT Luis Du MD LAB BLOOD BKR ORDERABLES Final Result Performing Organization Address [facility]/ZIP Co de Phone Number [address] [address] * (ABNORMAL) CBC and differential (01/18/2018 10:44 AM EDT) Pathologist [facility] WBC 6.55 3.40 - 11.20 K/uL [facility] RBC 4.45 3.80 - 4.80 M/uL [facility] HGB 14.1 12.0 - 15.0 g/dL [facility] HCT 40.9 36.0 - 46.0 % [facility] PLT 324 130 - 400 K/uL [facility] MCV 91.9 79.0 - 98.0 fL [facility] MCH 31.7 27.0 - 34.8 pg [facility] MCHC 34.5 31.5 - 36.0 g/dL [facility] RDW 12.8 10.8 - 14.6 % [facility] MPV 10.1 9.4 - 12.4 fl [facility] NRBC 0.00 /100 WBCs [facility] ABSOLUTE NRBC 0.00 K/uL [facility] DIFF METHOD Auto [facility] NEUTS 67.7 45.30 - 77.70 % [facility] LYMPHS 20.6 12.30 - 39.70 % [facility] MONOS 9.5 4.10 - 12.80 % [facility] EOS 1.4 0 - 7.2 % [facility] BASOS 0.3 0 - 2.80 % [facility] Granulocytes, immature (%) 0.5 0.0 - 0.9 % [facility] ABSOLUTE NEUTS 4.44 1.40 - 7.70 K/uL [facility] ABSOLUTE LYMPHS 1.35 0.60 - 3.20 K/uL [facility] ABSOLUTE MONOS 0.62(H) 0.11 - 0.59 K/uL [facility] ABSOLUTE EOS 0.09 0.01 - 0.50 K/uL [facility] ABSOLUTE BASOS 0.02 0.00 - 0.08 K/uL [facility] Granulocytes, immature 0.03 0.00 - 0.05 K/uL [facility] Blood 01/18/2018 10:4 4 AM EDT 01/18/2018 10:46 AM EDT us Luis Du MD LAB BLOOD BKR ORDERABLES Final Result [address] [address] * Comprehensive metabolic panel (01/18/2018 10:44 AM EDT) SODIUM 142 133 - 146 mmol/L [facility] POTASSIUM 3.7 3.3 - 5.1 mmol/L [facility] CHLORIDE 101 96 - 108 mmol/L [facility] CO2 28 21 - 35 mmol/L [facility] BUN 9 6 - 19 mg/dL [facility] CREATININE 0.70 0.5 - 1.5 mg/dL [facility] GLUCOSE 94 70 - 99 mg/dL [facility] ALBUMIN 3.9 3.9 - 4.8 g/dL [facility] TOTAL PROTEIN 7.0 6.5 - 8.0 g/dL [facility] CALCIUM 9.4 8.4 - 10.3 mg/dL [facility] ALKALINE PHOSPHATASE 56 39 - 117 U/L [facility] TOTAL BILIRUBIN 0.9 0.0 - 1.2 mg/dL [facility] AST 19 0 - 37 U/L [facility] ALT 15 0 - 40 U/L [facility] GLOBULIN 3.1 1 - 4.8 g/dL [facility] EGFR 94 >59 mL/min/1.7 3m2 [facility] Comment:If patient is black, multiply result by 1.159. The eGFR calculation has changed from the MDRD equation to the CKD-EPI equation as of October 18, 2017. ANION GAP 17 10 - 20 mmol/L [facility] Blood 01/18/2018 10:4 4 AM EDT 01/18/2018 10:46 AM EDT us Luis Du MD LAB BLOOD BKR ORDERABLES Final Result Performing Organization Address City/State/[facility] Co de Phone Number [address] [address] documented in this encounter Visit Diagnoses Diagnosis Colitis- Primary Other and unspecified noninfectious gastroenteritis and colitis Rectal bleeding Hemorrhage of rectum and anus documented in this encounter Care Teams Automatic Data Processing Planner Relationship Specialty Start Date End Date Luis Du MD PCP - General Internal Medicine 02/08/18 06/24/24 Royal Luciano MD [address] [place] [address] PCP - General Family Medicine 06/25/24 documented as of this encounter Additional Source Comments The information contained in this document represents components of the legal health record. It is not the complete legal health record.[facility]
--- OUTSIDE RECORDS SUMMARY | 2025-06-25 15:54 | XMS_ITS | Patient Health Record ---
Author Organization [facility] angel BoJacky Address [address] [facility] [place] [address] Care Team Providers Care Physician Office Clin Asst Name Role Phone DuLuis Primary Care Provider Garrett Melvin Unavailable [phone] Reason For Referral No Information Medications Medication SIG (Take, Route, Frequency, Duration) Notes Start Date End Date Status Advair Diskus 100-50 MCG/DOSE 1 puff Inhalation every 12 hrs Active ProAir HFA 108 (90 Base) MCG/ACT 2 puffs as needed Inhalation every 4 hrs Active Problems Problem Type SNOMED Code ICD Code Onset Dates Problem Status W/U Status Risk Notes Problem Ganglion cyst (30221541) Ganglion Cyst (727.43) Active confirmed Problem Hammer toe (419180980) Hammer toe (735.4) Active confirmed Plan Of Treatment Pending Test Test Name Order Date X ray : Foot, right 3V 04/11/2012- Ganglion Cyst Injection/Aspiratio n 04/11/2012 Insurance Providers Payer Name Payer Address Payer Phone Subscriber Number Group Number Insured Name Patient Relationship to Insured Coverage Start Date Coverage End Date [facility] [employer] [address] [place] [address] [id number] Elizabeth Aguilera Self - patient is the insured Medical (General) History Medical History History ICD Code asthma measles mumps chicken pox Surgical History Surgery Date(Month/Year) tonsillectomy 1980 hemorrhoidectomy 1988
--- OUTSIDE RECORDS SUMMARY | 2025-06-25 15:54 | XMS_ITS | Encounter Summary ---
Author Organization [facility] Address [address] [place] [phone] Phone Care Team Providers Care Conveyor Installer Name Role Phone Ajay Moss DO Primary Care Provider [phone] Luis Du MD Primary Care Provider Royal Germain MD Primary Care Provider + Encounter Details Date Type Department Care Team (Late st Contact Info) Description 09/28/2017 Ancillary Orders Non-Invasive Cardiology [address] [place] [address] Luis Du MD Atypical chest pain Social [...] st Contact Info) Description 06/03/2025 Procedure Pass [facility] - MRI [address] [place] [address], [address] [place] [address] 07/17/2025 2:40 PM EST Hospital Encounter [facility] - MRI [address] [facility], [address] [place] [address] Sharon Myles, SENIOR RELIABILITY ENGINEER [address] [place] [address] [email or web address] documented as of this encounter Results * NC Stress Result for Nuclear Stress Test (NWH) (09/29/2017 10:08 AM EST) Max BP Systolic 140 mmHg [facility] Max BP Diastolic 60 mmHg [facility] Max HR 166 BPM [facility] Resting HR 103 BPM [facility] Resting BP Systolic 100 mmHg [facility] Resting BP Diastolic 60 mmHg [facility] Peak METS 10.1 METS [facility] Peak HR 166 BPM [facility] Anatomical Region Laterality Modality Heart Other 09/29/2017 [...] images to follow. EKG reviewed with Dr. Porway Lisette Ibanez ASH WORKER us Luis Du MD CV NM CARDIAC Final Result documented in this encounter Visit Diagnoses Diagnosis Atypical chest pain Other chest pain documented in this encounter Care Teams Conveyor Installer Relationship Specialty Start Date End Date Halliecarolyn Ajay Chavez DO [address] [place] [address], [facility] [address] [place] [address] [email or web address] PCP - General 08/18/17 09/28/17 Luis Du MD PCP - General Internal Medicine 02/08/18 06/24/24 Royal Luciano MD [address] [place] [address] PCP - General Family Medicine 06/25/24 documented as of this encounter Additional Source Comments The information contained in this document represents components of the legal health record. It is not the complete legal health record.[facility]
== END 2025-06-25 14:14 | disposition home or self-care (01) ==
LOC: HO.MAMMO 14:13
PROVIDERS: PCP Family Medicine; Visit Provider Family Medicine
DX: Z12.31 Encounter for screening mammogram for malignant neoplasm of breast (principal)
CPT/HCPCS: 77063; 77067

== ENCOUNTER → 2025-06-25 14:30 | Outpatient (BNV) | payer MEDICARE, SELFPAY | PROVIDERS: PCP Family Medicine; Visit Provider Internal Medicine | DX: Z12.31 Encounter for screening mammogram for malignant neoplasm of breast (principal) | CPT/HCPCS: 77063; 77067 ==